=== PATIENT | female | born 1955 | race Caucasian/White ===

== ENCOUNTER → 2018-12-17 | Outpatient (CLI) | payer OTHER ==
[~2018-12-17] MED LIST: COLACE 100 MG100 MG PO; DEXAMETHASONE 22 M1 PO; HYDROCODON-ACE1 EAC7 PO; NEXIUM 40 MG CA40 M1 PO; NOHOMEMEDICATIONS
== END ==
LOC: M.RAD 14:14
DX: Z12.31 Encounter for screening mammogram for malignant neoplasm of breast (principal)

== ENCOUNTER 2020-09-03 08:49 | Emergency (ER) | payer OTHER ==
[~2020-09-03] VITALS: Ht 160 cm; Wt 63.5 kg
--- NOTE | ~2020-09-03 | PROC ---
[address] [address] PROCEDURE REPORT Name: SARAHTRINIDADBIENVENIDO L Room: [facility] Gloria#: [id number] Admission: 09/03/20 Attend Phys: Discharge: 09/03/20 Date of : 57 Report #: [id number] THIS REPORT FOR: cc: KIMBERLY MCCALLUM NP, KATHERINE J. NP [facility],Medical Records Staff ~ For GI report, please see the Provation report in Perceptive 7 content. By: 1438Medical Records Staff ASHLEE /NATIVIDAD
[2020-09-03] MEDS ORDERED: OMEPRAZOLE 20 M20 M1 PO (08:59)
[2020-09-03 09:47] LABS: ABSOLUTE BASOPHILS 0.1 thou/uL (0.0-0.2); ABSOLUTE EOSINOPHILS 0.2 thou/uL (0.0-0.7); ABSOLUTE LYMPHOCYTES 1.4 thou/uL (0.8-5.3); ABSOLUTE MONOCYTES 0.4 thou/uL (0.0-1.2); BASOPHILS 0.7 %; EOSINOPHILS 2.3 %; HEMATOCRIT 40.8 % (37.0-47.0); HEMOGLOBIN 13.6 gm/dL (12.0-15.0); MCH 33.3 pg (26.0-34.0); MCHC 33.3 g/dL (28.0-37.0); MONOCYTES 6.3 %; MPV 10.2 fl. (7.2-11.1); NUCLEATED RBCS 0 /100WBC; PLATELET COUNT* 178 thou/uL (150-400); POLYS 70.7 %; RBC 4.08 mil/uL (4.20-5.00); RDW-CV 13.3 % (10.5-14.5); WBC 7.1 thou/uL (4.0-11.0)
[2020-09-03 09:58] LABS: CALCIUM 8.7 mg/dL (8.5-10.1); CREATININE 0.7 mg/dL (0.6-1.3); POTASSIUM 3.5 mmol/L (3.5-5.1)
[2020-09-03 10:02] LABS: ALBUMIN 3.8 g/dL (3.4-5.0); MAGNESIUM 2.2 mg/dL (1.8-2.4); TOTAL BILIRUBIN 1.2 mg/dL (<0.1-1.0); TOTAL PROTEIN 7.2 g/dL (6.4-8.2)
[2020-09-03 11:34] VITALS: BP 144/84
--- NOTE | 2020-09-05 13:47 | EKG ---
[place] [address] ELECTROCARDIOGRAM REPORT Name: BIENVENIDO SMITH Room: [facility]#: [id number] Admission: 09/03/20 Attend Phys: Discharge: 09/03/20 Date of : 57 Date of Service: 09/03/20927 Report #: [id number] THIS REPORT FOR: //name// [facility] Test Date: 2020-09-03 Test Time: 09:28:59 Pat Name: BIENVENIDO SMITH Department: Room: Gender: Pawn Broker: : 1955 Requested By: Artur Simmons Order Number: [id number] MD: Joshua Dave Measurements Intervals Dyer Rate: 76 P: -12 HI: 209 QRS: -34 QRSD: 138 T: 99 QT: 465 QTc: 523 Interpretive Statements Sinus arrhythmia Left bundle branch block Baseline wander in lead(s) V1,V2,V3,V4,V5,V6 Compared to ECG 02/27/2012 12:01:06 Left bundle-branch block now present Electronically Signed On 09-05-2020 13:47:22 CDT by Joshua Dave [email or web address] <ELECTRONICALLY SIGNED> By: Joshua Dave MD, FAC 09/05/20 1347 0928 0928 Joshua Dave MD, FAC /EPI
--- NOTE | 2020-09-06 16:07 | PATH ---
[address] [address] PATHOLOGY RPT PROCEDURE Name: BIENVENIDO SMITH Tomas Room: [facility] Gloria#: [id number] Admission: 09/03/20 Date of : 57 Discharge: 09/03/20 Report #: [id number] Path Case #: [id number] [facility] Accession Number: [id number] . 01 Material submitted: . duodenum - DUODENAL BIOPSIES FOR DUODENITIS . 01 Clinical history: . TROUBLE SWALLOWING EGD IN OR W/ANESTHESIA . 02 Diagnosis: Duodenal biopsies: - Moderate nonspecific active duodenitis with prominence of Rhina glands suggesting hyperplasia, negative for granulomas, viral inclusions and dysplasia/adenomatous change. (JAYDEN:marlys; 09/06/2020) MBR 09/06/2020 1322 Local . 02 Electronically signed: . Roger Bautista MD, Pathologist NPI- [id number] . 01 Gross description: . The specimen is received in formalin, labeled "White, Bienvenido, duodenal biopsies" received as 3 fragments of soft lehman tissue measuring up to 0.3 cm. Entirely submitted in A1.([facility]; 09/05/2020) ARI/ARI 09/06/2020 1321 Local . 02 Pathologist provided ICD-10: K29.80 . 02 CPT . 646483 Specimen Comment: A courtesy copy of this report has been sent to [phone], [phone] Specimen Comment: [phone], Specimen Comment: Report sent to ,DR MCCALLUM / DR CHAMBERS Specimen Comment: A duplicate report has been generated due to demographic updates. Performed at: 01 [facility] [address], [place] [id number] MD Dylan Chandra MD Phone: [phone] Performed at: [address] [facility] [address] [address], [place], [place] [id number] MD Roger Bautista MD Phone: [phone]
== END 2020-09-03 12:20 | disposition still patient (30) ==
LOC: M.ERS 08:49
PROVIDERS: Emergency Medicine Emergency Medical Services
DX: Z20.822 Contact with and (suspected) exposure to COVID-19 (principal); T18.128A Food in esophagus causing other injury, initial encounter; Z90.49 Acquired absence of other specified parts of digestive tract; Z88.5 Allergy status to narcotic agent; Z91.040 Latex allergy status; X58.XXXA Exposure to other specified factors, initial encounter; Y93.89 Activity, other specified; Y92.89 Other specified places as the place of occurrence of the external cause; Y99.8 Other external cause status